=== PATIENT | male | born 1990 ===

== ENCOUNTER 2017-07-12 19:09 | Emergency (ER) | payer BC, OTHER ==
[~2017-07-12] VITALS: Ht 165.1 cm; Wt 93.3 kg
[2017-07-12 19:30] VITALS: TEMP 36.8; Ht 165.1 cm; Wt 93.3 kg
--- NOTE | 2017-07-12 20:57 | DIAGNOSTIC IMAGING REPORT ---
LUMBAR SPINE 5 VIEWS CLINICAL HISTORY: Fall with low back pain. FINDINGS: 5 views of the lumbar spine are obtained. No prior studies are available for comparison at the time of dictation. The skeletal structures are well mineralized. There is no radiographic evidence of fracture or malalignment. Vertebral body height and alignment are maintained. The transverse and spinous processes are intact. There is no evidence of spondylolysis. The intervertebral disc spaces are well-maintained. The visualized bony pelvis appears intact. There is a nonobstructed abdominal bowel gas pattern. IMPRESSION: There is no radiographic evidence of fracture or malalignment involving the lumbar spine. Electronically signed by: Salty Randle M.D. 07/12/2017 8:56 PM Dictated Date/Time: 07/12/2017 8:55 PM
--- NOTE | 2017-07-12 20:58 | DIAGNOSTIC IMAGING REPORT ---
SACRUM AND COCCYX 3 VIEWS CLINICAL HISTORY: Fall with sacral pain. FINDINGS: 3 views of the sacrum and coccyx are obtained. No prior studies are available for comparison at the time of dictation. The skeletal structures are well mineralized. There is no radiographic evidence of sacrococcygeal fracture. The sacroiliac joints are normal as imaged. The visualized bony pelvis appears intact. The overlying soft tissues are normal as visualized. IMPRESSION: There is no radiographic evidence of sacrococcygeal fracture. Electronically signed by: Salty Randle M.D. 07/12/2017 8:57 PM Dictated Date/Time: 07/12/2017 8:56 PM
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
[2017-07-12 21:17] VITALS: BP 128/72; PULSE 87; O2SAT 98
== END 2017-07-12 21:18 | disposition home or self-care (01) ==
LOC: C.EDB 19:10 → C.EDD 21:18
DX: S30.0XXA Contusion of lower back and pelvis, initial encounter (principal); W19.XXXA Unspecified fall, initial encounter; Y92.89 Other specified places as the place of occurrence of the external cause; F17.210 Nicotine dependence, cigarettes, uncomplicated